=== PATIENT | female | born 1985 | race Caucasian/White ===

== ENCOUNTER 2019-10-19 19:29 | Emergency (ER) | payer BC, SELFPAY ==
[~2019-10-19] VITALS: Ht 160 cm; Wt 72.6 kg
[2019-10-19 19:50] VITALS: Ht 160 cm; Wt 72.6 kg
[2019-10-19 20:35] LABS: BASOPHIL % 0.2 % (0-2); RED CELL DISTRIBUTION WIDTH 13.2 % (11.5-14.5)
[2019-10-19 20:36] LABS: PLATELET COUNT 115 x10^3mcL (130-400)
[2019-10-19 21:30] LABS: CALCIUM 8.5 mg/dL (8.5-10.1); CHLORIDE SERUM 108 mmol/L (98-107); CREATININE SERUM 0.7 mg/dL (0.6-1.0); GFR1 > 60 mL/min; GLUCOSE SERUM 97 mg/dL (74-106); POTASSIUM SERUM 3.6 mmol/L (3.5-5.1); SODIUM SERUM 142 mmol/L (136-145)
[2019-10-19 21:35] LABS: ALKALINE PHOSPHATASE 110 U/L (46-116); ALT/SGPT 18 U/L (14-59); AMYLASE 55 U/L (25-115); AST/SGOT 14 U/L (15-37); BILIRUBIN TOTAL 0.29 mg/dL (0.20-1.00); LIPASE 137 IU/L (73-393); TOTAL PROTEIN, SERUM 6.7 g/dL (6.4-8.2)
[2019-10-19 21:36] LABS: ALBUMIN 3.1 g/dL (3.4-5.0)
[2019-10-19 23:01] VITALS: BP 101/62
== END 2019-10-19 22:35 | disposition home or self-care (01) ==
LOC: ED 19:29
PROVIDERS: Emergency Medicine
DX: R10.2 Pelvic and perineal pain (principal); R11.2 Nausea with vomiting, unspecified; R19.7 Diarrhea, unspecified; Z88.5 Allergy status to narcotic agent; Z98.890 Other specified postprocedural states
CPT/HCPCS: J1885; Q0092; U0003-CS